=== PATIENT | male | born 1950 | race Caucasian/White ===

== ENCOUNTER → 2017-05-14 | Outpatient (CLI) | payer OTHER | END | disposition home or self-care (01) | LOC: KCIC US 10:44 | DX: E04.2 Nontoxic multinodular goiter (principal) | CPT/HCPCS: 76536 ==

== ENCOUNTER → 2017-08-12 | Outpatient (CLI) | payer OTHER ==
[2017-08-12 11:50] LABS: ADD MAN DIFF? NO
[2017-08-12 12:04] LABS: BASO # 0.1 x10^3/uL (0.0-0.2); BASO % 1 % (0-3); EOS # 0.3 x10^3/uL (0.0-0.7); EOS % 2 % (0-3); HEMATOCRIT 45.3 % (39.0-53.0); HEMOGLOBIN 15.7 g/dL (13.0-17.5); LYMPH # 2.7 x10^3/uL (1.0-4.8); LYMPH % 24 % (24-48); MEAN CORPUSCULAR HEMOGLOBIN 30 pg (25-35); MEAN CORPUSCULAR HGB CONC 35 g/dL (31-37); MEAN CORPUSCULAR VOLUME 87 fL (79-100); MONO # 1.1 x10^3/uL (0.0-1.1); MONO % 9 % (0-9); NEUT # 7.4 x10^3uL (1.8-7.7); NEUT % 63 % (31-73); PLATELET COUNT 276 x10^3/uL (140-400); RED BLOOD COUNT 5.21 x10^6/uL (4.30-5.70); RED CELL DISTRIBUTION WIDTH 12.8 % (11.5-14.5); WHITE BLOOD COUNT 11.6 x10^3/uL (4.0-11.0)
[2017-08-12 12:06] LABS: ALBUMIN/GLOBULIN RATIO 1.1 (1.0-1.7); ALK PHOS 108 U/L (46-116); ALT (SGPT) 33 U/L (16-63); ANION GAP 8 (6-14); AST (SGOT) 21 U/L (15-37); BLOOD UREA NITROGEN 28 mg/dL (8-26); BUN/CREATININE RATIO 25 (6-20); CALCIUM 9.1 mg/dL (8.5-10.1); CARBON DIOXIDE 28 mmol/L (21-32); CHLORIDE 104 mmol/L (98-107); CREATININE 1.1 mg/dL (0.7-1.3); GFR 67.2; GLUCOSE 104 mg/dL (70-99); POTASSIUM 4.3 mmol/L (3.5-5.1); SODIUM 140 mmol/L (136-145); TOTAL BILIRUBIN 1.5 mg/dL (0.2-1.0); TOTAL PROTEIN 7.7 g/dL (6.4-8.2)
== END | disposition home or self-care (01) ==
LOC: LAB 10:37
DX: Z01.818 Encounter for other preprocedural examination (principal); E04.2 Nontoxic multinodular goiter; J39.8 Other specified diseases of upper respiratory tract
CPT/HCPCS: 36415; 71046; 80053; 85025; 93005

== ENCOUNTER → 2017-08-25 | Outpatient (CLI) | payer OTHER ==
[2017-08-25 09:49] LABS: CALCIUM 8.8 mg/dL (8.5-10.1)
== END | disposition home or self-care (01) ==
LOC: LAB 09:11
DX: E04.2 Nontoxic multinodular goiter (principal); E66.01 Morbid (severe) obesity due to excess calories
CPT/HCPCS: 36415; 82310

== ENCOUNTER → 2019-03-22 | Outpatient (CLI) | payer OTHER ==
--- NOTE | 2019-03-22 09:43 | KCIC ---
EXAM: Abdomen sonogram. HISTORY: Liver cysts. TECHNIQUE: Sonographic imaging of the abdomen was performed. COMPARISON: None. FINDINGS: The liver is enlarged. There is hepatic steatosis. There is a large complex cystic lesion with suspected internal debris or nonvascular solid mural component within the left hepatic lobe measuring 11.6 cm. There is a more simple appearing cyst within the right hepatic lobe measuring 8.9 cm. There is a third smaller simple appearing cysts measuring 3.7 cm. The gallbladder is unremarkable. The common bile duct is normal in caliber. The kidneys are unremarkable. The spleen is mildly enlarged. There are splenic granulomas. The pancreatic tail is obscured due to bowel gas. The proximal distal abdominal aorta are obscured due to bowel gas. The mid abdominal aorta is ectatic, measuring 2.7 cm. The inferior vena cava is patent. IMPRESSION: 1. Multiple hepatic cysts, the largest of which measures 11.6 cm within the left hepatic lobe and appears complex due to internal debris or nonvascular solid mural component. Given the size of these lesions, CT or MRI may be useful for better characterization. There is no prior study for comparison at the time of dictation. 2. Mild hepatosplenomegaly. 3. Ectatic mid abdominal aorta measuring 2.7 cm. 4. Limited exam due to body habitus and bowel gas. Electronically signed by: Loly Anderson MD (03/22/2019 9:40 AM) [id number]
== END ==
LOC: KCIC US 08:37
PROVIDERS: ATTEND Urology
DX: K76.89 Other specified diseases of liver (principal); I77.811 Abdominal aortic ectasia; D73.89 Other diseases of spleen; K76.0 Fatty (change of) liver, not elsewhere classified; R16.2 Hepatomegaly with splenomegaly, not elsewhere classified; I10 Essential (primary) hypertension
CPT/HCPCS: 76700